=== PATIENT | male | born 1950 | race Caucasian/White ===

== ENCOUNTER → 2018-11-18 | Outpatient (CLI) | payer MEDICARE ==
[~2018-11-18] MED LIST: Omeprazole20 M1 PO
[2018-11-20 05:57] LABS: Stool Occult Bld Immuno 1 Negative (NEGATIVE)
== END | disposition home or self-care (01) ==
LOC: LAB 20:00 → LAB SHORT 20:00
PROVIDERS: Family Medicine
DX: Z12.11 Encounter for screening for malignant neoplasm of colon (principal)
CPT/HCPCS: G0328

== ENCOUNTER 2020-10-11 07:52 | Day surgery (SDC) | payer MEDICARE ==
[~2020-10-11] VITALS: Ht 172.7 cm; Wt 80.1 kg
[~2020-10-11 07:52] MED LIST changes: +HYDCHL25 PO; +IBUP200 PO; +METO25ER PO
--- NOTE | 2020-10-11 08:24 | NUR ---
PT NPO PRIOR TO PROCEDURE SINCE [place]. NO C/O PAIN OR DISCOMFORT. QUESTIONS REGARDING PROCEDURE ANSWERED. HTN NOTED. PT STATES HE "GETS THIS WAY" AT HOSPITALS SOMETIMES.
--- NOTE | 2020-10-11 09:12 | NUR ---
10/11/20 0912 Raphael Garza PATIENT DETERMINED TO BE ASA APPROPRIATE FOR PROPOFOL SEDATION PRIOR TO START OF PROCEDURE BY DR. PASCUAL.Bite Block Placed 3-LEAD EKG REVIEWED WITH PHYSICIAN PRIOR TO START OF PROCEDURE.History, Chart, Medications and Allergies reviewed before start of procedure. MONITOR INTACT WITH CONTINUOUS PULSE OXIMETRY AND INTERMITTENT BP.
--- NOTE | 2020-10-11 10:00 | NUR ---
PT ABLE TO DRESS INDEPENDANTLY. D/C ISTRUCTIONS GIVEN. PT DENIES QUESTIONS. RIDE HOME WAITING OUT FRONT.
== END 2020-10-11 23:30 | disposition home or self-care (01) ==
LOC: ORSCMMR 07:52 → ORD 09:00 → ORSCMMR 09:00
PROVIDERS: Internal Medicine Gastroenterology
PROC: 3E0G8GC Introduction of Other Therapeutic Substance into Upper GI, Via Natural or Artificial Opening Endoscopic (ICD-10-PCS; principal; 2020-10-11 09:00)
DX: K22.0 Achalasia of cardia (principal); I10 Essential (primary) hypertension; Z79.899 Other long term (current) drug therapy
CPT/HCPCS: A9270; J0585; J2704; J7120

== ENCOUNTER 2021-12-01 09:33 | Day surgery (SDC) | payer MEDICARE ==
[~2021-12-01] VITALS: Ht 172.7 cm; Wt 76.2 kg
== END 2021-12-01 11:47 | disposition home or self-care (01) ==
LOC: ORSCSDS 09:33
PROVIDERS: Ophthalmology
PROC: 08RJ3JZ Replacement of Right Lens with Synthetic Substitute, Percutaneous Approach (ICD-10-PCS; principal; 2021-12-01 11:00)
DX: H25.11 Age-related nuclear cataract, right eye (principal); H52.201 Unspecified astigmatism, right eye; I10 Essential (primary) hypertension; Z79.899 Other long term (current) drug therapy; Z87.891 Personal history of nicotine dependence
CPT/HCPCS: J2001; J2250; J3010; J3301; J7040; V2632